=== PATIENT | male | born 1975 | race Caucasian/White ===

== ENCOUNTER 2017-10-03 13:49 | Emergency (ER) | payer MEDICAID, OTHER | END 2017-10-03 14:50 | disposition home or self-care (01) | LOC: FTE 13:49 | DX: R22.0 Localized swelling, mass and lump, head (principal) | CPT/HCPCS: 99282; Z7502 ==

== ENCOUNTER 2018-09-21 13:03 | Emergency (ER) | payer BC, MEDICAID ==
[2018-09-21 13:50] LABS: ADD MAN DIFF? NO
[2018-09-21 13:52] LABS: BASOPHIL # 0.1 10^3/ul (0.0-0.1); BASOPHILS % 0.4 % (0.0-2.0); HEMATOCRIT 44.6 % (42.0-52.0); HEMOGLOBIN 14.9 g/dl (14.0-18.0); LYMPHOCYTES # 0.7 10^3/ul (0.8-2.9); LYMPHOCYTES % 4.6 % (15.0-51.0); MEAN CORPUSCULAR HEMOGLOBIN 31.8 pg (29.0-33.0); MEAN CORPUSCULAR HGB CONC 33.4 g/dl (32.0-37.0); MEAN CORPUSCULAR VOLUME 95.3 fl (82.0-101.0); MEAN PLATELET VOLUME 10.2 fl (7.4-10.4); MONOCYTE # 0.8 10^3/ul (0.3-0.9); MONOCYTES % 4.9 % (0.0-11.0); NEUTROPHIL # 14.2 10^3/ul (1.6-7.5); PLATELET COUNT 249 10^3/UL (140-415); RED BLOOD COUNT 4.68 10^6/ul (4.70-6.10); RED CELL DISTRIBUTION WIDTH 12.1 % (11.5-14.5)
[2018-09-21] MEDS: ONDANSETRON 4 MG INJ IV (14:16)
[2018-09-21] MEDS: morphine 4 MG/ML VIAL IV (14:16)
[2018-09-21 14:48] LABS: ALANINE AMINOTRANSFERASE 38 IU/L (13-69); ALBUMIN 4.7 g/dl (3.3-4.9); ALBUMIN/GLOBULIN RATIO 1.62; ALKALINE PHOSPHATASE 105 IU/L (42-121); ANION GAP 13 (5-13); ASPARTATE AMINO TRANSFERASE 39 IU/L (15-46); BILIRUBIN,INDIRECT 0.2 mg/dl (0-1.1); BILIRUBIN,TOTAL 0.2 mg/dl (0.2-1.3); BLOOD UREA NITROGEN 18 mg/dl (7-20); CALCIUM 10.7 mg/dl (8.4-10.2); CARBON DIOXIDE 25 mmol/L (21-31); CHLORIDE 106 mmol/L (97-110); CREATININE 0.86 mg/dl (0.61-1.24); Estimated GFR > 60 mL/min (>60); GLUCOSE 115 mg/dl (70-220); LIPASE 70 U/L (23-300); POTASSIUM 3.9 mmol/L (3.5-5.1); SODIUM 144 mmol/L (135-144); TOTAL PROTEIN 7.6 g/dl (6.1-8.1)
[2018-09-21 14:57] LABS: ETHANOL < 10.0 mg/dl (0-0)
[2018-09-21 15:14] LABS: URINE BLOOD (Dip) POC 3+ (NEGATIVE); URINE GLUCOSE (Dip) POC Negative (NEGATIVE); URINE KETONES (Dip) POC Trace (NEGATIVE); URINE LEUKOCYTE EST (Dip) POC Negative (NEGATIVE); URINE NITRITE (Dip) POC Negative (NEGATIVE); URINE TOTAL PROTEIN POC 1+ (NEGATIVE)
[2018-09-21 15:38] LABS: AMPHETAMINE/METHAMPHETAMINE Negative (NEGATIVE); BARBITURATES Negative (NEGATIVE); BENZODIAZEPINES Negative (NEGATIVE); COCAINE Negative (NEGATIVE)
[2018-09-21 15:47] LABS: CANNABINOIDS Positive (NEGATIVE); OPIATES Positive (NEGATIVE)
== END 2018-09-21 16:47 | disposition home or self-care (01) ==
LOC: E/R 13:03
DX: N20.1 Calculus of ureter (principal); K80.20 Calculus of gallbladder without cholecystitis without obstruction
CPT/HCPCS: 36415; 74176; 80053; 80307; 81003; 83690; 85025; 93005; 96374; 96375; 99285-25

== ENCOUNTER 2018-09-22 08:52 | Emergency (ER) | payer SELFPAY, BC | END 2018-09-22 10:59 | disposition left against medical advice (07) | LOC: FTE 10:59 | DX: Z53.21 Procedure and treatment not carried out due to patient leaving prior to being seen by health care provider (principal) ==

== ENCOUNTER 2018-12-26 09:09 | Day surgery (SDC) | payer BC ==
[2018-12-26 09:48] LABS: ADD MAN DIFF? NO
[2018-12-26 09:52] LABS: BASOPHIL # 0.1 10^3/ul (0.0-0.1); BASOPHILS % 0.6 % (0.0-2.0); EOSINOPHILS # 0.1 10^3/ul (0.0-0.5); EOSINOPHILS % 0.6 % (0.0-7.0); HEMOGLOBIN 13.3 g/dl (14.0-18.0); LYMPHOCYTES % 12.5 % (15.0-51.0); MEAN CORPUSCULAR HEMOGLOBIN 32.3 pg (29.0-33.0); MEAN CORPUSCULAR HGB CONC 33.3 g/dl (32.0-37.0); MEAN CORPUSCULAR VOLUME 97.1 fl (82.0-101.0); MEAN PLATELET VOLUME 9.9 fl (7.4-10.4); MONOCYTE # 0.5 10^3/ul (0.3-0.9); MONOCYTES % 6.6 % (0.0-11.0); NEUTROPHIL # 6.2 10^3/ul (1.6-7.5); NEUTROPHILS % 78.6 % (39.0-77.0); PLATELET COUNT 317 10^3/UL (140-415); RED BLOOD COUNT 4.12 10^6/ul (4.70-6.10); RED CELL DISTRIBUTION WIDTH 12.4 % (11.5-14.5)
[2018-12-26 09:52] LABS: WHITE BLOOD COUNT 7.9 10^3/ul (4.8-10.8)
[2018-12-26 10:11] LABS: INR 0.91; PROTIME 12.4 Sec (11.9-14.9)
[2018-12-26 10:12] LABS: ALANINE AMINOTRANSFERASE 19 IU/L (13-69); ALBUMIN 4.3 g/dl (3.3-4.9); ALBUMIN/GLOBULIN RATIO 1.34; ALKALINE PHOSPHATASE 109 IU/L (42-121); ANION GAP 8 (5-13); ASPARTATE AMINO TRANSFERASE 26 IU/L (15-46); BILIRUBIN,INDIRECT 0.2 mg/dl (0-1.1); BILIRUBIN,TOTAL 0.2 mg/dl (0.2-1.3); BLOOD UREA NITROGEN 13 mg/dl (7-20); CARBON DIOXIDE 28 mmol/L (21-31); CHLORIDE 104 mmol/L (97-110); CREATININE 0.85 mg/dl (0.61-1.24); Estimated GFR > 60 mL/min (>60); GLUCOSE 91 mg/dl (70-220); PARTIAL THROMBOPLASTIN TIME 28.8 Sec (23.0-35.0); POTASSIUM 4.9 mmol/L (3.5-5.1); TOTAL PROTEIN 7.5 g/dl (6.1-8.1)
[2018-12-26 10:26] LABS: CALCIUM 10.3 mg/dl (8.4-10.2); SODIUM 140 mmol/L (135-144)
[2018-12-26] MEDS ORDERED: SOD CHLORIDE 0.9% 1,000 ML IV (10:30)
[2018-12-26] MEDS ORDERED: CEFAZOLIN 2 GM/50 ML (PMX) 50 ML IVPB (10:30)
[2018-12-26] MEDS ORDERED: LIDOCAINE 2% (SDV) 5 ML INJ (12:49)
[2018-12-26] MEDS ORDERED: CEFAZOLIN 1 GM INJ (12:49)
[2018-12-26] MEDS ORDERED: PROPOFOL 20 ML (12:49)
[2018-12-26] MEDS ORDERED: FENTAnyl 50 MCG/ML VIAL (13:02)
[2018-12-26] MEDS: BUPIVACAINE 0.25% (MPF) 30 ML INJ (13:12)
[2018-12-26] MEDS: BACITRACIN 0.9 GM OINT (13:25)
[2018-12-26] MEDS ORDERED: EPHEDrine SULFATE 50 MG/5 ML SYG IV (14:00)
[2018-12-26] MEDS ORDERED: MIDAZOLAM 1 MG/ML 2 ML INJ IV (14:00)
[2018-12-26] MEDS ORDERED: DIPHENHYDRAMINE 50 MG INJ IV (14:00)
[2018-12-26] MEDS ORDERED: OXYCODONE/ACETAMINOPHEN (5/325) TAB PO ×2 (14:00)
[2018-12-26] MEDS ORDERED: LABETALOL HCL 20MG INJ IV (14:00)
[2018-12-26] MEDS ORDERED: HYDROmorphONE 1 MG/5 ML IV SYRINGE IV ×3 (14:00)
[2018-12-26] MEDS ORDERED: hydrALAzine 20 MG INJ IV (14:00)
[2018-12-26] MEDS ORDERED: FENTAnyl 50 MCG/ML VIAL IV ×3 (14:00)
[2018-12-26] MEDS ORDERED: METOCLOPRAMIDE 10 MG INJ IV (14:00)
[2018-12-26] MEDS: ONDANSETRON 4 MG INJ IV (14:10)
[2018-12-26] MEDS: MEPERIDINE 25 MG INJ IV (14:10)
[2018-12-26] MEDS: HYDROCODONE/APAP (5/325) TAB PO (14:19)
== END 2018-12-26 15:05 | disposition home or self-care (01) ==
LOC: SDS 09:09
DX: D23.4 Other benign neoplasm of skin of scalp and neck (principal)
CPT/HCPCS: 14020; 80053; 85025; 85610; 85730; 88307